=== PATIENT | male | born 1985 | race American Indian/Alaskan Native ===

== ENCOUNTER 2020-10-06 10:29 | Emergency (ER) | payer SELFPAY ==
--- NOTE | 2020-10-06 10:43 | Event Note ---
ED Screening Note Date of service: 10/06/20 Time: 10:42 ED Screening Note: Patient complains of chest pain starting last night Denies shortness of breath No cardiac history This initial assessment/diagnostic orders/clinical plan/treatment(s) is/are subject to change based on patients health status, clinical progression and re- assessment by fellow clinical providers in the ED. Further treatment and workup at subsequent clinical providers discretion. Patient/guardian urged not to elope from the ED as their condition may be serious if not clinically assessed and managed. Initial orders include: Labs EKG Chest x-ray
--- NOTE | 2020-10-06 11:29 | XRay Report ---
CHEST 2 VIEWS INDICATION / CLINICAL INFORMATION: Chest pain. COMPARISON: 10/08/2009. FINDINGS: SUPPORT DEVICES: None. HEART / MEDIASTINUM: The heart size and pulmonary vasculature are normal. The aorta is normal in mariah jory. LUNGS / PLEURA: No significant pulmonary or pleural abnormality. No pneumothorax. ADDITIONAL FINDINGS: No significant additional findings. IMPRESSION: No acute abnormality or significant change. Signer Name: Axel Patterson MD Signed: 10/06/2020 11:25 AM Workstation Name: [email or web address]
[2020-10-06 12:33] LABS: Basophils % (Auto) 0.4 % (0.0-1.8); Eosinophils # (Auto) 0.2 K/mm3 (0.0-0.4); Eosinophils % (Auto) 1.6 % (0.0-4.3); Hematocrit 43.6 % (35.5-45.6); Hemoglobin 14.4 gm/dl (11.8-15.2); Lymphocytes # (Auto) 1.8 K/mm3 (1.2-5.4); Lymphocytes % (Auto) 18.4 % (13.4-35.0); Mean Corpuscular HGB Conc 33 % (32-34); Mean Corpuscular Volume 89 fl (84-94); Monocytes # (Auto) 0.6 K/mm3 (0.0-0.8); Monocytes % (Auto) 6.3 % (0.0-7.3); Platelet Count 241 K/mm3 (140-440); Red Cell Distribution Width 11.9 % (13.2-15.2)
[2020-10-06 13:01] LABS: Alanine Aminotransferase 22 units/L (7-56); Albumin 4.1 g/dL (3.9-5); BUN/Creatinine Ratio 9; Blood Urea Nitrogen 9 mg/dL (9-20); Hemolysis Index 9
--- NOTE | 2020-10-06 13:15 | Emergency Department Report ---
ED Chest Pain HPI - General Chief Complaint: Chest Pain Stated Complaint: CHEST PAIN PUI?: No Time Seen by Provider: 10/06/20 10:41 Source: patient Mode of arrival: Ambulatory Limitations: No Limitations - History of Present Illness Initial Comments: The patient was evaluated in the emergency department for symptoms described in the history of present illness. He/she was evaluated in the context of the global COVID-19 pandemic, which necessitated consideration that the patient might be at risk for infection with the virus that causes COVID-19. Institutional protocols and algorithms that pertain to the evaluation of wolfgang ents at risk for COVID-19 are in a state of rapid change based on information released by regulatory bodies including the CDC and federal and state organizations. These policies and algorithms were followed during the patient's care in the emergency department. Please note that these policies, procedures and recommendations changed on a rapid basis. 35-year-old -[place] male presents to the emergency room complaining of chest pain that is been intermittent since last night. Patient states that he has started at work yesterday. Patient reports he sits at a computer. He reports that the pain is sharp and tightening and intermittent. Patient denies any pain at this time. Patient does have a history of GERD but is not taking anything for it. Patient denies any nausea vomiting no shortness of breath no chest pain at this time. Patient denies any impending doom no diaphoresis no trauma. Patient denies any radiation of pain. MD Complaint: chest pain -: Last night Onset: during rest Pain Location: left chest Pain Radiation: none Severity scale (0 -10): 0 Quality: sharp, squeezing Consistency: intermittent Improves With: nothing Worsens With: nothing re: denies: nausea, vomting, diaphoresis, dyspnea, sense of impending doom Treatments Prior to Arrival: none - Related Data Home Medications Medication Instructions Recorded Confirmed Last Taken No Known Home Medications [No 03/06/15 03/06/15 Unknown Reported Home Medications] Allergies Allergy/AdvReac Type Severity Reaction Status Date / Time No Known Allergies Allergy Verified 10/06/20 10:33 Heart Score - HEART Score History: Slightly suspicious EKG: Normal Age: < 45 Risk factors: No known risk factors Troponin: < normal limit HEART Score: 0 ED Review of Systems ROS: Stated complaint: CHEST PAIN Other details as noted in HPI Comment: All other systems reviewed and negative ED Past Medical Hx - Past Medical History Hx GERD: Yes - Surgical History Additional Surgical History: Jaw Fx 2012 - Social History Smoking Status: Never Smoker Substance Use Type: Alcohol - Medications Home Medications: Home Medications Medication Instructions Recorded Confirmed Last Taken Type No Known Home Medications [No 03/06/15 03/06/15 Unknown History Reported Home Medications] ED Physical Exam - General Limitations: No Limitations General appearance: alert, in no apparent distress - Head Head exam: Present: atraumatic, normocephalic - Eye Eye exam: Present: normal appearance - ENT ENT exam: Present: mucous membranes moist - Neck Neck exam: Present: normal inspection - Respiratory Respiratory exam: Present: normal lung sounds bilaterally. Absent: respiratory distress - Cardiovascular Cardiovascular Exam: Present: regular rate, normal rhythm. Absent: systolic murmur, diastolic murmur, rubs, gallop - GI/Abdominal GI/Abdominal exam: Present: soft, normal bowel sounds - Rectal Rectal exam: Present: deferred - Extremities Exam Extremities exam: Present: normal inspection - Back Exam Back exam: Present: normal inspection - Neurological Exam Neurological exam: Present: alert, oriented X3 - Psychiatric Psychiatric exam: Present: normal affect, normal mood - Skin Skin exam: Present: warm, dry, intact, normal color. Absent: rash ED Course Vital Signs 10/06/20 10/06/20 10:41 12:29 Temperature 98.3 F Pulse Rate 81 74 Respiratory 20 16 Rate Blood Pressure 133/80 Blood Pressure 115/70 [Left] O2 Sat by Pulse 98 98 Oximetry MINESH score - Minesh Score Age > 65: (0) No Aspirin use within the Past 7 Days: (0) No 3 or more CAD Risk Factors: (0) No 2 or more Angina events in past 24 hrs: (0) No Known CAD with more than 50% Stenosis: (0) No Elevated Cardiac Markers: (0) No ST Deviation Greater than 0.5mm: (0) No MINESH Score: 0 ED Medical Decision Making - Lab Data Result diagrams: 10/06/20 12:02 10/06/20 12:02 - EKG Data EKG shows normal: sinus rhythm Rate: normal - Radiology Data Radiology results: report reviewed [facility] [address] [place] [address] XRay Report Signed Patient: CANDY TEE MR#: [id number] : 1985 Acct:[id number] Age/Sex: 35 / M ADM Date: 10/06/20 Loc: ED Attending Dr: Ordering Physician: HELEN SZYMANSKI Date of Service: 10/06/20 Procedure(s): XR chest routine 2V Accession Number(s): [id number] cc: HELEN SZYMANSKI Fluoro Time In Minutes: CHEST 2 VIEWS INDICATION / CLINICAL INFORMATION: Chest pain. COMPARISON: 10/08/2009. FINDINGS: SUPPORT DEVICES: None. HEART / MEDIASTINUM: The heart size and pulmonary vasculature are normal. The aorta is normal in caliber. LUNGS / PLEURA: No significant pulmonary or pleural abnormality. No pneumothorax. ADDITIONAL FINDINGS: No significant additional findings. IMPRESSION: No acute abnormality or significant change. Signer Name: Axel Patterson MD Signed: 10/06/2020 11:25 AM Workstation Name: [id number] Transcribed By: RT Dictated By: Axel Patterson MD Electronically Authenticated By: Axel Patterson MD Signed Date/Time: 10/06/20 1125 DD/ 1124 TD/TT: Print Cancel - Medical Decision Making 35-year-old -[place] male presents to the emergency room complaining of chest pain that is been intermittent since last night. Patient states that he has started at work yesterday. Patient reports he sits at a computer. He reports that the pain is sharp and tightening and intermittent. Patient denies any pain at this time. Patient does have a history of GERD but is not taking anything for it. Patient denies any nausea vomiting no shortness of breath no chest pain at this time. Patient denies any impending doom no diaphoresis no trauma. Patient denies any radiation of pain. I discussed with the patient and/or caregiver the rapid rule out protocol to for acute coronary syndrome and myocardial infarction and that given the findings during his ED evaluation, there is no clinical EKG or laboratory evidence of injury to the heart. I further explained that there is no current valuated protocol that can reliable risk stratify a patient into a very low risk category of less than a 1 to 2% possibility of significant cardiac disease. Therefore it remains possible that there is underlying pathology that may develop into a acute coronary syndrome at some point in the future. I discussed this with the patient and/or caregiver at length, as well as the necessary steps that may include follow-up, stress test, cardiac imaging and further lab evaluation for further assessment. The patient and/or caregiver have expressed a clear and thorough understanding and agreed to the follow up as instructed Critical care attestation.: If time is entered above; I have spent that time in minutes in the direct care of this critically ill patient, excluding procedure time. ED Disposition Clinical Impression: Atypical chest pain Disposition: DC-01 TO HOME OR SELFCARE Is pt being admited?: No Does the pt Need Aspirin: No Condition: Stable Instructions: Nonspecific Chest Pain, Adult Additional Instructions: Chest x-ray, labs and EKG are all within normal limits. I recommended she follow-up with the aviation electrician. Referrals: PRIMARY CAREMD [Primary Care Provider] - 3-5 Days SHU VILLEGAS MD [Staff Physician] - 3-5 Days Forms: Work/School Release Form(ED)
[2020-10-06 15:00] VITALS: BP 135/82
--- NOTE | 2020-10-07 09:47 | Electrocardiograph Report ---
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
== END 2020-10-06 15:00 | disposition home or self-care (01) ==
LOC: ED 10:29
DX: R07.89 Other chest pain (principal); K21.9 Gastro-esophageal reflux disease without esophagitis
CPT/HCPCS: 36415; 71046; 80053; 84484; 85025; 93005